=== PATIENT | female | born 1960 ===

== ENCOUNTER → 2018-05-12 | Emergency (ER) | payer OTHER ==
[~2018-05-12] VITALS: Ht 154.9 cm; Wt 74.8 kg
[~2018-05-12] MED LIST: FLOVENT 110MCG7.9 GM IH; PREDNISONE10 MG PO; TUSSIONEX PENNKI5 ML PO; ZITHROMAX500 MG PO
== END | disposition home or self-care (01) ==
LOC: ER 09:12
DX: B34.9 Viral infection, unspecified (principal)

== ENCOUNTER 2022-10-21 10:44 | Emergency (ER) | payer OTHER ==
[~2022-10-21] VITALS: Ht 152.4 cm; Wt 63.5 kg
== END 2022-10-21 13:09 | disposition home or self-care (01) ==
LOC: ER 10:44
DX: H01.003 Unspecified blepharitis right eye, unspecified eyelid (principal); Z88.0 Allergy status to penicillin